=== PATIENT | male | born 2000 | race Caucasian/White ===

== ENCOUNTER 2020-06-25 21:50 | Emergency (ER) | payer OTHER ==
[~2020-06-25] VITALS: Ht 180.3 cm; Wt 86.4 kg
[2020-06-25] MEDS ORDERED: ISOVUE-370 76% 100ML VIAL As Ordered ONE (22:07)
[2020-06-25] MEDS ORDERED: NS 1,000 ML IV ONE (22:15)
[2020-06-25] MEDS ORDERED: ceFAZolin SOD 1 GM in D5W MINI-BAG PLUS 50 ML IV ONE (22:15)
[2020-06-25] MEDS ORDERED: LIDOCAINE W/EPINEPHRINE 1% 20ML VIAL SC ONE (22:45)
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
[2020-06-25] MEDS ORDERED: AUGM500T34 PO (23:23)
[2020-06-26 00:09] VITALS: BP 102/52
== END 2020-06-26 00:11 | disposition home or self-care (01) ==
LOC: M ED 21:50
DX: S71.112A Laceration without foreign body, left thigh, initial encounter (principal); W26.8XXA Contact with other sharp object(s), not elsewhere classified, initial encounter; Y92.098 Other place in other non-institutional residence as the place of occurrence of the external cause; Y93.89 Activity, other specified; Y99.8 Other external cause status
CPT/HCPCS: 12001; 73706; 80047; 96365; 96366; 99284; J0690; Q9967